=== PATIENT | male | born 1965 | race Caucasian/White ===

== ENCOUNTER 2021-05-11 07:40 | Observation (INO) | payer OTHER ==
[~2021-05-11] VITALS: Ht 180.3 cm; Wt 84.1 kg
[2021-05-11] MEDS ORDERED: ZESTRIL10 MG PO (07:53)
[2021-05-11] MEDS ORDERED: NORVASC10 MG PO (07:53)
[2021-05-11] MEDS ORDERED: LIPITOR40 MG PO (07:54)
--- NOTE | 2021-05-11 13:50 | NUR ---
New admit to the medical floor. Patient alert and oriernted x4, no acute distress. Patient reports RLQ abdominal pain with nausea since 0330 this morning. Vital signs are stable. IV fluids infusing per provider order. Patient oriented to room and call light. at bedside. Patient and understanding of plan of care for surgery today around 4pm. No current needs. Personal supplies and call light within reach.
--- NOTE | 2021-05-11 13:55 | NUR ---
PATIENT GIVEN 0.5MG OF IV DILAUDID FOR 5/10 ABD PAIN. CONSENT SIGNED AND WITNESSED.
--- NOTE | 2021-05-11 14:10 | NUR ---
Verbal order obtained from Dr. Machuca for one time dose of Cefoxitin 2gm IV to be [employer] physical [employer] for surgery today @ 1600. Order placed at this time.
--- NOTE | 2021-05-11 15:39 | NUR ---
Patient left unit for surgery department.
[2021-05-11] MEDS ORDERED: AMLODIPINE BESYL5 MG PO (16:51)
[2021-05-11] MEDS ORDERED: IBUPROFEN400 MG PO (16:52)
[2021-05-11] MEDS ORDERED: ATORVASTATIN CA20 MG PO (16:52)
[2021-05-11] MEDS ORDERED: VITAMIN D325 MCG PO (16:54)
--- NOTE | 2021-05-11 17:42 | NUR ---
05/11/21 1742 Krystal Montano 1656 PT ARRIVED IN PACU NON RESPONSIVE TO NOXIOUS STIMULI WITH OPA IN PLACE. 1659 PT REACTIVE. OPA REMOVED. 1710 PT AWAKE AND TALKING TO STAFF. STATES "I FEEL BETTER NOW, THAN BEFORE SURGERY." 1720 DR AT BEDSIDE TALKING TO PT. ALL QUESTIONS ANSWERED. 1730 TO ROOM 107. REPORT GIVEN TO RN. BED PLUGGED IN.
--- NOTE | 2021-05-11 17:51 | NUR ---
Patient back to medical floor from surgery. Pt awake, a&ox4. Patient reports mild, tolerable abd pain. Abdominal Lap sites x3 noted, all closed with steri strips-sarosang drainage noted. Patient denies nausea. Vital signs stable, sp02 97% on room air. CPOX and scd's intact. Patient's at bedside. Fresh water and snack provided to patient. No current needs. Encouraged patient to eat as tolerable so we can start po pain medications.
--- NOTE | 2021-05-11 18:29 | NUR ---
One tab Percocet 7.5/325mg po admin for reports 5/10 abd pain.
--- NOTE | 2021-05-11 19:20 | NUR ---
BEDSIDE REPORT RECEIVED FROM MAE, AISLINN ROWLEY. PT RESTING IN BED WITH AT BEDSIDE. NEEDS DENIED AT THIS TIME. CALL LIGHT IN REACH.
--- NOTE | 2021-05-11 19:45 | NUR ---
ICE WATER X2 PROVIDED. ROOM TEMP ADJUSTED DOWN FROM 76 TO 70 PER PATIENT'S FAMILY IN THE ROOM REQUEST.
--- NOTE | 2021-05-11 20:00 | NUR ---
PT ASSESSMENT COMPLETE. PT STATES THAT PAIN IS WELL CONTROLLED AT THIS TIME, RATES 1/10. DENIES NAUSEA OR SOB. LAP SITES WITH SMALL AMOUNT OF REDBLOOD PRESENT. BT'S ACTIVE. ABD TENDER TO PALPATION. IV FLUSHED WITH 10 ML NS, PATENT, WNL. PTS PRESENT AT BEDSIDE. PT UP TO VOID AND BACK TO BED WITH 1PA, PT TOLERATED WELL. PT DENIES FURTHER NEEDS AT THIS TIME. CALL LIGHT IN REACH.
--- NOTE | 2021-05-11 21:45 | NUR ---
PT UP TO BATHROOM AND BACK TO BED. SCHEDULED MEDS ADMINISTERED. PT REQUESTS PRN PAIN MEDCIATION, TYLENOL, FOR 3/10 PAIN TO ABD WITH MOVEMENT. ADMINISTERED SEE EMAR. ICE WATER REFILLED. PT DENIES FURTHER NEEDS AT THIS TIME. CALL LIGHT IN REACH.
--- NOTE | 2021-05-12 00:30 | NUR ---
PT RESTINGIN BED. WAKES EASILY WHEN DIRECTOR ECONOMIC ENTERS THE ROOM. PT STATES THAT PAIN IS WELL CONTROLLED AT THIS TIME, RATES 1/10. DENIES NEED FOR PRNS AT THIS TIME. DENIES FURTHER NEEDS AT THIS TIME. CALL LIGHT IN REACH.
--- NOTE | 2021-05-12 02:22 | NUR ---
PATIENT GOT UP TO THE BATHROOM ASSISTED BY . GOWN CHANGED. PATIENT IS BACK IN BED. CPOX AND SCD'S ARE BACK ON. ICE PACK AND ICE WATER PROVIDED. V/S AND I&O'S RAKEN AND RECORDED. AISLINN GARCIA WAS WITH PATIENT.
--- NOTE | 2021-05-12 02:25 | NUR ---
PT ASSESSMENT COMPLETE. PT STATES THAT PAIN IS VERY MILD, 3/10. PT WOULD LIKE TO TRY PRN TORADOL FOR PAIN. ADMINISTERED, SEE EMAR. BT'S ACTIVE. ABD TENDER TO PALPATION. STERI STRIPS WITH SMALL AMOUNT OF RED DRAINAGE PRESENT. PT USING ICE PACK TO ABD. STATES THIS IS VERY HELPFUL FOR HIS PAIN. PT DENIES FURTHER NEEDS AT THIS TIME. CALL LIGHT IN REACH. PT'S REMAINS AT BEDSIDE.
--- NOTE | 2021-05-12 04:22 | NUR ---
pt's utilizes call light for alarm beeping. sheet writer to room, scd's alarming. scheduled medication administered. pt reports toradol was ineffective in reducing pain, requests prn tylenol. administered, see emar. pt up to bathroom and back to bed with 1 pa. tolerated well. pt denies further needs at tthis time. call light in reach.
--- NOTE | 2021-05-12 07:36 | NUR ---
REPORT RECEIVED FROM NIGHT RN - PT RESTING IN BED WATCHING TV WITH AT BEDSIDE. DENIES NEEDS AT THIS TIME. CARE PLAN REVIEWED.
--- NOTE | 2021-05-12 08:00 | NUR ---
Spoke with pt and his . Pt plans on dc to home today with . will assist him as need and will take his RX to the pharmacy to have filled. Pt denies other needs. Daughter will also be home to assist pt.
[2021-05-12] MEDS ORDERED: IBUPROFEN600 MG PO (08:10)
[2021-05-12] MEDS ORDERED: ACETAMINOPHEN500 MG PO (08:10)
[2021-05-12] MEDS ORDERED: OXYCODON-ACETA1 EAC2 PO (08:10)
--- NOTE | 2021-05-12 08:26 | NUR ---
MED REC COMPLETE
--- NOTE | 2021-05-12 09:08 | NUR ---
PATIENT SALINE LOCKED, PULSE OX IS OFF, SCD'S ARE OFF. PATIENT UP TO BATHROOM AND MOVING ABOUT ROOM. GIVEN PATIENT PRESCRIPTION TO TAKE TO THE PHARMACY, PLANS TO RETURN BEFORE NOON. PRIMARY NURSE NOTIFIED.
--- NOTE | 2021-05-12 10:08 | NUR ---
RN IN ROOM TO ASSESS PT. PT RESTING IN BED WATCHING TV. ASSESSMENT WNL - VS STABLE. PT RATES PAIN /10 - PRN IBUPROFEN ADMINISTERED. SCHEDULED MEDS ALSO ADMINISTERED. ENCOURAGED PT TO STAY AHEAD OF PAIN WITH INCREASED MOVEMENT WITH D/C TO HOME PLAN. PT STATES UNDERSTANDING. PT REPORTS HE HAS PASSED GAS, DENIES NAUSEA WITH BREAKFAST. IV SITE TOLERATING FLUIDS RUNNING WELL WITHOUT DIFFICULTY. VOIDING WITHOUT DIFFICULTY. ENCOUARGED PT TO CALL WITH NEEDS. DENIES ANY AT THIS TIME.
--- NOTE | 2021-05-12 10:51 | NUR ---
RN IN ROOM TO ADDRESS IV POLE ALARMING. PT ON PHONE RESTING IN BED. NO DISTRESS NOTED. CALL LIGHT AND BEDSIDE TABLE IN REACH.
--- NOTE | 2021-05-12 11:34 | NUR ---
ENTERED PT'S RM-HE IS ON PHONE. ALSO NOTED HIS IV ALARM IS SOUNDING. AISLINN HAWK WILL RESPOND. WILL CHECK BACK
--- NOTE | 2021-05-12 12:18 | NUR ---
PT TAKEN TO PERSONAL VEHICLE BY COOK ROOM SUPERVISOR ACCOMPONIED BY .
--- NOTE | 2021-05-13 22:08 | OR ---
[facility] [address] [place], [place] [address] Signed DATE OF OPERATION: 05/11/2021 SURGEON: Justyn Basilio MD PREOPERATIVE DIAGNOSIS: Acute appendicitis. POSTOPERATIVE DIAGNOSES: 1. Acute appendicitis. 2. Possible diverticula of the appendix including proximal 1/4th and distal tip. PROCEDURE: Laparoscopic appendectomy. ANESTHESIA: General endotracheal, Cheyenne Alon, FRAME REPAIRER and local 10 mL of 0.25% Marcaine with epinephrine. INDICATION: This 55-year-old white man lives in [place] and works in [employer], and is a patient of ALEXIS Whiting. At approximately 3 a.m., he began having vague abdominal pain, ultimately culminating in a right lower abdominal pain, where he presented to the emergency room at [facility], where he was found to have appendicitis based on clinical criteria and CT scan study. He has been fluid resuscitated, given intravenous antibiotic cefoxitin, and is now to undergo appendectomy preferred by laparoscopic approach. The risks of bleeding, infection, need for open procedure, failure of diagnosis, misdiagnosis, and other unforeseen complications was reviewed in detail. He understands wished to proceed. FINDINGS: Indeed, he clearly had acute appendicitis. The appendix was quite elongated and markedly dilated. There were 2 lesions in the proximal appendix that were suggestive of diverticula of the possibility of external serosal lesions as acknowledged. The tip had a similar such lesion; he did not have the typical appearance of a carcinoid tumor. Final pathology is pending. Notably, the cecum was otherwise normal as was the terminal ileum. The gallbladder was normal as was the liver. DESCRIPTION OF PROCEDURE: The patient was brought to the operating room, given a general endotracheal anesthetic. Preoperative antibiotic cefoxitin had been given was additionally given immediately Electronically Signed By: JUSTYN BASILIO MD 05/13/21 2208 PATIENT NAME: VIC TYLER OPERATIVE REPORT DATE OF : 61 REPORT #: [id number] PHYSICIAN: JUSTYN BASILIO MD PCP: OWEN GOTTLIEB REPORT IS CONFIDENTIAL AND NOT TO BE RELEASED WITHOUT AUTHORIZATION [facility] [address] [place], [place] [address] Signed preoperatively. Sequential compression device stockings were used and heparin subcutaneously administered. The abdomen was clipped and prepared with a chlorhexidine solution and draped sterilely. An infraumbilical incision was made and using an open Cristo cannula technique, pneumoperitoneum was achieved to a level of 14 mmHg of carbon dioxide gas. Intra-abdominal inspection showed no sign of ascites or carcinomatosis. Immediately noted was an inflamed appendix, which was dilated and situated anterior to the additional surrounding viscera. A 12-mm epigastric port was placed and a camera placed to that site. With single hand manipulation, the appendix could be more fully manipulated, confirming inflammatory changes of the appendix and a violaceous diverticulum appearing lesion in the proximal appendix. The right lower quadrant incision was made and trocar placed 5 mm in size allowing for 2-hand manipulation. The appendix was elevated and a window created between the appendix and mesoappendix and using an Endo-COURT stapling device, the base of the appendix was transected flushed with the cecum. Indeed, it was a small portion of cecum excised with it. Various manipulations allowed for replacement of an Endo-COURT stapling load over the mesoappendix, which was transected. The appendix was withdrawn into the infraumbilical trocar and explanted. It was examined on the back table and found to have tip of the appendix with similar such lesion that appeared to be a diverticulum. Irrigation was undertaken to the right lower quadrant. The staple lines were hemostatic. Excess irrigation fluid was suctioned free. Examination of the gallbladder and liver showed it to be essentially normal. The trocars removed under direct visualization showing no sign of bleeding. The infraumbilical fascial incision was reapproximated with interrupted 0 Vicryl suture. A 10 mL of 0.25% Marcaine was injected locally. The skin was closed with interrupted 3-0 Vicryl. Steri-Strips were applied. The patient was ultimately extubated and transferred to the recovery room in good condition, having suffered no complications. Sponge, needle, and counts reported as correct x3. Justyn Basilio MD /MODL /[id number] Electronically Signed By: JUSTYN BASILIO MD 05/13/21 2208 PATIENT NAME: VIC TYLER OPERATIVE REPORT DATE OF : 61 REPORT #: [id number] PHYSICIAN: JUSTYN BASILIO MD PCP: OWEN GOTTLIEB REPORT IS CONFIDENTIAL AND NOT TO BE RELEASED WITHOUT AUTHORIZATION [address] [address] Signed cc: MD Kalli Matamoros FNP Copies: OWEN GOTTLIEB ~ Electronically Signed By: JUSTYN BASILIO MD 05/13/21 2208 PATIENT NAME: VIC TYLER [facility] OPERATIVE REPORT DATE OF : 61 REPORT #: [id number] PHYSICIAN: JUSTYN BASILIO MD PCP: OWEN GOTTLIEB REPORT IS CONFIDENTIAL AND NOT TO BE RELEASED WITHOUT AUTHORIZATION
--- NOTE | 2021-05-13 22:08 | HP ---
[facility] [address] [place], [place] [address] Signed ADMISSION DATE: 05/11/2021 REASON FOR ADMISSION: Acute appendicitis. HISTORY OF PRESENT ILLNESS: This 55-year-old white male was awakened from sleep at approximately 3:30 a.m. this morning. He noted vague feeling of being unwell. He did not have nausea, vomiting, but a "tingling sensation." As time went on, the pain worsened and migrated to the right lower quadrant. He presented to the emergency room at approximately 7:45 a.m. and was evaluated by Dr. Raphael, emergency room physician, where he was found to have some tenderness in the right lower abdomen. Evaluation included a CBC with a normal white count of 11.2, and normal CMP, and platelets normal at 244, and hematocrit 47.5. A CT scan was obtained which shows findings consistent with acute appendicitis. He is admitted for further evaluation and care. PAST MEDICAL HISTORY: Hypertension and dyslipidemia. MEDICATIONS: At admission include amlodipine (Norvasc) 10 mg p.o. daily and atorvastatin 40 mg tablets 60 mg p.o. daily as well as lisinopril 10 mg p.o. daily. ALLERGIES: He has no known drug allergies. SOCIAL HISTORY: He is . He is accompanied by his . He has a daughter who went to [employer] and has an ABIEL in healthcare studies. She now lives in [place]. 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 REVIEW OF SYSTEMS: He denies any shortness of breath or chest pain. He has had no dysphagia or dysuria. PHYSICAL EXAMINATION: GENERAL: A pleasant white man who does not look to be severely toxic. VITAL SIGNS: Temperature of 97.9, pulse is 63, blood pressure 121/68, O2 saturation on room air is 98%. HEENT: Trachea is midline. CHEST: Normal respiratory excursion. Pulses regular. ABDOMEN: Nondistended. There is a negative Rovsing sign. He has mild tenderness at Electronically Signed By: JUSTYN BASILIO MD 05/13/21 2208 PATIENT NAME: VIC TYLER HISTORY AND PHYSICAL DATE OF : 61 REPORT #: [id number] PHYSICIAN: JUSTYN BSAILIO MD PCP: OWEN GOTTLIEB REPORT IS CONFIDENTIAL AND NOT TO BE RELEASED WITHOUT AUTHORIZATION [facility] [address] [place], [place] [address] Signed Khari's point. EXTREMITIES: No clubbing, cyanosis, or edema. LAB STUDIES: As noted, showed a hematocrit of 47.5, platelets 244,000, and white count 11.2. Chem profile is essentially normal. Creatinine is 1.06. Urinalysis is normal. COVID serology is negative. A CT scan was reviewed in detail as were the reports associated with it from Dr. Shelton. ASSESSMENT: The patient has acute apparently nonperforated appendicitis of relatively recent onset. I discussed both operative and nonoperative approaches and would advocate appendectomy. A laparoscopic approach most likely would be possible. The risks of bleeding, infection, need for open procedure, need for drainage of perforation actually found, and of course failure of diagnosis or misdiagnosis which may require other interventions. He understands all this and wished to proceed. Justyn Basilio MD JM/MODL /[id number] cc: Justyn Lopez MD Copies: ~ Electronically Signed By: JUSTYN BASILIO MD 05/13/21 2208 PATIENT NAME: VIC TYLER HISTORY AND PHYSICAL DATE OF : 61 REPORT #: [id number] PHYSICIAN: JUSTYN BASILIO MD PCP: OWEN GOTTLIEB REPORT IS CONFIDENTIAL AND NOT TO BE RELEASED WITHOUT AUTHORIZATION
--- NOTE | 2021-05-19 15:00 | PATH ---
[facility] [address] [place], [place] [address] Signed SPECIMEN(S): A APPENDIX SPECIMEN SOURCE: A. APPENDIX CLINICAL HISTORY: Acute appendicitis. FINAL PATHOLOGIC DIAGNOSIS: Appendix, appendectomy: - Acute appendicitis. - Appendiceal diverticuli. NAL:NRT:cml:C2NR MICROSCOPIC EXAMINATION: Histologic sections of all submitted blocks are examined by light microscopy. These findings, together with the gross examination, support the pathologic diagnosis. GROSS DESCRIPTION: The specimen, labeled "TL," and designated on the requisition "appendix," is received in formalin and consists of Specimen: Appendix with mesoappendix. Dimensions: 9.0 x 0.9-1.2 cm. Serosa: Nielsen and smooth with three fluid-filled serosal cysts ranging 0.5-1.1 cm in greatest dimension; located 1.2, 4.2, and 8.8 cm from proximal margin (largest is at distal tip). Disruption: Not grossly identified. Inking: Staple line is inked black. Mucosa: Nielsen-mottled red with varying thickness. Fecalith: Not grossly identified. Additional: Possible mucinous cyst, clear and turbid mucinous fluid throughout; distal tip trisected longitudinally. Shoe Stitcher Odd sections are submitted in cassettes (A1-A4); (A2): Distal tip with serosal cyst; (A3): Distal tip involving serosal cyst and second largest serosal cyst; (A4): Second and third serosal cysts. AT (under the direct supervision of a pathologist) Following initial examination of HE slides, Dr. Thacker requests remaining tissue. PATIENT NAME: VIC TYLER PATHOLOGY DATE OF : 61 REPORT #: [id number] PHYSICIAN: JORGE JENNINGS PCP: OWEN GOTTLIEB REPORT IS CONFIDENTIAL AND NOT TO BE RELEASED WITHOUT AUTHORIZATION [facility] [address] [place] [address] Signed A5-A8: Remaining appendiceal tissue Note: Fatty mesoappendix retained AT The Gross Description was prepared using a voice recognition system. The report was reviewed for accuracy; however, sound-alike word errors, addition and/or deletions may occur. If there is any question about this report, please contact Client Services. PERFORMING LABORATORY: The technical component was performed [place] [address] (Dietary Manager: Sera Madera MD; CLIA# [id number]). Professional interpretation was performed by [email or web address], [address] [address] (CLIA# [id number]). Diagnostician: Narcisa Thacker MD Pathologist Electronically Signed 05/19/2021 Copies: ~ PATIENT NAME: VIC TYLER PATHOLOGY DATE OF : 61 REPORT #: [id number] PHYSICIAN: JORGE PATHOLOGY PCP: OWEN GOTTLIEB REPORT IS CONFIDENTIAL AND NOT TO BE RELEASED WITHOUT AUTHORIZATION
== END 2021-05-12 12:20 | disposition home or self-care (01) ==
LOC: ED 07:40 → MS 07:42
PROVIDERS: ADMIT Surgery; ATTEND Surgery
PROC: 0DTJ4ZZ Resection of Appendix, Percutaneous Endoscopic Approach (ICD-10-PCS; principal; 2021-05-11 16:00)
DX: K35.80 Unspecified acute appendicitis (principal); K38.2 Diverticulum of appendix; I10 Essential (primary) hypertension; E78.5 Hyperlipidemia, unspecified; Z20.822 Contact with and (suspected) exposure to COVID-19
CPT/HCPCS: 00840; 36415; 74177; 80053; 81001; 83690; 85025; 88304; 96372; 96375; 96376; 99285-25; A9270; G0378; J0131; J0694; J1100; J1170; J1644; J1885; J2001; J2250; J2405; J2704; J7121; Q9967; U0003